=== PATIENT | female | born 1990 | race Two or more races ===

== ENCOUNTER 2022-12-12 11:42 | Emergency (ER) | payer OTHER ==
[~2022-12-12] VITALS: Ht 149.9 cm; Wt 44.5 kg
--- NOTE | 2022-12-12 11:45 | NUR ---
RECEIVED PT 32 YRS FEMALE FROM HOME SKIN LAUCERATION ON RT UPPER SIDE ON FACE HEALING NO BLEEDING ON SITE
--- NOTE | 2022-12-12 12:15 | NUR ---
CLEAN WOUND DONE
--- NOTE | 2022-12-12 12:25 | NUR ---
SEEN BY DR. ODEN
--- NOTE | 2022-12-12 12:42 | NUR ---
Patient discharged to home in stable condition. Written and verbal after care instructions given. Patient verbalizes understanding of instruction.
[2022-12-12 12:46] VITALS: BP 148/76
== END 2022-12-12 12:47 | disposition home or self-care (01) ==
LOC: ER 11:58
DX: Z48.00 Encounter for change or removal of nonsurgical wound dressing (principal); S01.81XD Laceration without foreign body of other part of head, subsequent encounter; X58.XXXD Exposure to other specified factors, subsequent encounter